=== PATIENT | female | born 1945 | race Caucasian/White ===

== ENCOUNTER 2016-07-05 16:48 | Emergency (ER) | payer OTHER ==
[2016-07-05 17:31] LABS: BASOPHIL 0.2 % (0-2); EOSINOPHIL 0.1 % (0-7); HCT 46.3 % (37.0-47.0); LYMPHOCYTE 9.9 % (15-48); MCH 30.8 pg (25.0-31.0); MCHC 34.6 g/dL (32.0-36.0); MONOCYTE 10.8 % (0-12); PLT 398 K/uL (150-400); RDW 12.4 % (11.5-14.0)
[2016-07-05 17:45] LABS: ALBUMIN 3.9 g/dL (3.4-4.8); BILIRUBIN - TOTAL 0.7 mg/dL (0.1-1.0); CKMB 4.37 ng/mL (0.97-4.94); CREATININE 1.7 mg/dL (0.5-1.0); GLOBULIN (CALCULATION) 3.5 g/dL (2.2-4.2); POTASSIUM 4.9 mmol/L (3.5-5.1); TOTAL PROTEIN 7.4 g/dL (6.4-8.3)
[2016-07-05 17:55] LABS: TROPONIN T 0.328 ng/mL
[2016-07-05 18:11] LABS: LACTIC ACID 2.6 mmol/L (0.5-2.2)
[2016-07-05 18:56] LABS: BILIRUBIN NEGATIVE (NEGATIVE); BLOOD NEGATIVE Ery/uL (NEGATIVE); CLARITY SLIGHTLY HAZY (CLEAR); COLOR YELLOW (YELLOW); GLUCOSE (U) NORMAL (NORMAL); KETONE (U) NEGATIVE (NEGATIVE); LEUKOCYTES NEGATIVE Leu/uL (NEGATIVE); NITRITE NEGATIVE (NEGATIVE); PROTEIN 1+ mg/dL (NEGATIVE); SPECIFIC GRAVITY >=1.030 (1.001-1.030)
[2016-07-05 19:00] LABS: AMORPHOUS URATES CRYSTALS TRACE; BACTERIA TRACE
== END 2016-07-05 19:29 | disposition other institution (70) ==
LOC: FER 16:48
PROVIDERS: Emergency Medicine
DX: I21.3 ST elevation (STEMI) myocardial infarction of unspecified site (principal); D72.829 Elevated white blood cell count, unspecified; R10.84 Generalized abdominal pain; R53.1 Weakness; R82.90 Unspecified abnormal findings in urine; I12.9 Hypertensive chronic kidney disease with stage 1 through stage 4 chronic kidney disease, or unspecified chronic kidney disease; E11.22 Type 2 diabetes mellitus with diabetic chronic kidney disease; N18.9 Chronic kidney disease, unspecified; Z79.84 Long term (current) use of oral hypoglycemic drugs; Z79.82 Long term (current) use of aspirin; Z79.899 Other long term (current) drug therapy; Z90.710 Acquired absence of both cervix and uterus
CPT/HCPCS: 36415; 74022; 80053; 81001; 82550; 82553; 83605; 83690; 84484; 85025; 87040; 87088; 93005; 96372; J2543